=== PATIENT | male | born 1930 | race Caucasian/White ===

== ENCOUNTER 2021-04-06 13:20 | Inpatient (IN) | payer MEDICARE ==
[2021-04-06 13:45] LABS: #Basophils 0.1 10x3/uL (0.0-0.2); #Eosinphils 0.2 10x3/uL (0.0-0.5); #Monocytes 0.8 10x3/uL (0.0-1.1); #Neutrophils 4.5 10x3/uL (1.5-8.4); %Basophils 0.7 % (0.0-2.0); %Eosinophils 1.8 % (0.0-6.0); %Lymphocytes 34.8 % (18.0-47.0); %Monocytes 9.3 % (0.0-10.0); Hemoglobin 16.7 g/dL (13.5-17.5); Mean Corpuscular HGB CONC 33.3 g/dL (32.0-36.0); Mean Corpuscular Hemoglobin 30.5 pg (27.0-33.0); Mean Corpuscular Volume 91.8 fl (81.2-95.1); Mean Platelet Volume 9.9 fl (7.4-10.4); Platelet Count 245 10x3/uL (150-450); RBC Distribution Width 13.4 % (11.5-14.5); Red Blood Cell (RBC) Count 5.47 10x6/uL (4.32-5.72); White Blood Cell (WBC) Count 8.5 10x3/uL (3.5-10.5)
[2021-04-06 13:59] LABS: ALT (SGPT) 14 U/L (8-55); AST (SGOT) 14 U/L (5-34); Albumin 4.2 g/dL (3.4-4.8); Alkaline Phosphatase 82 U/L (40-110); Anion Gap 14 mmol/L (10-20); BUN (Urea Nitrogen) 23 mg/dL (8.4-25.7); Bilirubin, Total 0.9 mg/dL (0.2-1.2); CK (CPK) 46 U/L (30-200); Calc. Creatinine Clearance 0 mL/min (70-130); Calcium 9.1 mg/dL (7.8-10.44); Carbon Dioxide 25 mmol/L (23-31); Chloride 108 mmol/L (98-107); Globulin 1.9 g/dL (2.4-3.5); Glucose 109 mg/dL (83-110); Magnesium 2.1 mg/dL (1.6-2.6); Potassium 4.6 mmol/L (3.5-5.1); Protein, Total 6.1 g/dL (5.8-8.1); Sodium 142 mmol/L (136-145)
[2021-04-06] MEDS ORDERED: Aspirin Chewable 81 MG TAB ONE (14:31)
[2021-04-06 15:21] LABS: Acetaminophen Less than 6.0 mcg/mL (10.0-30.0); Alcohol Less than 10 mg/dL (Less than 10); Salicylate Less than 8.0 mg/dL (15.0-30.0)
[2021-04-06] MEDS ORDERED: Ondansetron ODT 4 MG TAB PO PRN (15:28)
[2021-04-06] MEDS ORDERED: Senokot S 8.6-50 MG TAB PO PRN (15:28)
[2021-04-06] MEDS ORDERED: Acetaminophen 325 MG TAB PO PRN (15:28)
[2021-04-06 15:39] LABS: Bilirubin Neg (Negative); Blood, Urine Negative (Negative); Clarity Clear (Clear); Glucose, Urine (Dipstick) Normal (Negative); Ketone, Urine Negative (Negative); Leukocyte Negative (Negative); Nitrite Negative (Negative); Protein, Urine (Dipstick) Negative (Neg-Trace); Specific Gravity, Urine 1.005 (1.002-1.036); Urobilinogen Normal mg/dL (Less than 2)
[2021-04-06] MEDS ORDERED: Acetaminophen 325 MG TAB PO SCH (18:00)
[2021-04-06 20:08] VITALS: BMI 30.7
[2021-04-06] MEDS: Atorvastatin Calcium 40 MG TAB PO SCH (20:51)
[2021-04-06] MEDS: Famotidine 20 MG TAB PO SCH (20:51)
[2021-04-06 22:04] LABS: Bilirubin Neg (Negative); Blood, Urine Negative (Negative); Clarity Clear (Clear); Glucose, Urine (Dipstick) Normal (Negative); Ketone, Urine Negative (Negative); Leukocyte Negative (Negative); Nitrite Negative (Negative); Protein, Urine (Dipstick) Negative (Neg-Trace); Specific Gravity, Urine 1.015 (1.002-1.036); Urobilinogen Normal mg/dL (Less than 2)
[2021-04-06 22:14] LABS: Amphetamine Not Detected (NotDetected); Barbiturates Screen Not Detected (NotDetected); Benzodiazepine Screen Not Detected (NotDetected); Cocaine Metabolite Screen Not Detected (NotDetected); Methadone Not Detected (NotDetected); Methamphetamine Not Detected (NotDetected); Opiate Screen Not Detected (NotDetected); Oxycodone Screen Not Detected (NotDetected); Phencyclidine (PCP) Not Detected (NotDetected); THC/Cannabinoid Screen Not Detected (NotDetected); Tricyclic Screen Not Detected (NotDetected)
[2021-04-06 22:18] LABS: Bacteria/HPF Rare-Few HPF (None Seen); RBC/HPF 0-3 HPF (0-3); Squamous Epithelial None Seen HPF (0-3); WBC/HPF None Seen HPF (0-3)
[2021-04-07] MEDS ORDERED: diphenhydrAMINE 25 MG CAP PO SCH (00:30)
[2021-04-07] MEDS ORDERED: Amlodipine 5 MG TAB PO SCH (05:15)
[2021-04-07 06:58] LABS: #Basophils 0.1 10x3/uL (0.0-0.2); #Eosinphils 0.1 10x3/uL (0.0-0.5); #Monocytes 0.7 10x3/uL (0.0-1.1); #Neutrophils 3.4 10x3/uL (1.5-8.4); %Basophils 0.9 % (0.0-2.0); %Lymphocytes 33.4 % (18.0-47.0); %Monocytes 10.4 % (0.0-10.0); Hemoglobin 17.3 g/dL (13.5-17.5); Mean Corpuscular HGB CONC 32.8 g/dL (32.0-36.0); Mean Corpuscular Hemoglobin 29.8 pg (27.0-33.0); Mean Corpuscular Volume 90.9 fl (81.2-95.1); Platelet Count 187 10x3/uL (150-450); RBC Distribution Width 13.5 % (11.5-14.5); White Blood Cell (WBC) Count 6.4 10x3/uL (3.5-10.5)
[2021-04-07 07:42] LABS: Anion Gap 13 mmol/L (10-20); BUN (Urea Nitrogen) 21 mg/dL (8.4-25.7); Calc. Creatinine Clearance 74 mL/min (70-130); Calcium 9.5 mg/dL (7.8-10.44); Carbon Dioxide 25 mmol/L (23-31); Cardiac Risk 3.8 (Less than 4.5); Chloride 109 mmol/L (98-107); Cholesterol 125 mg/dl (< 200 Desired); Glucose 121 mg/dL (83-110); HDL Cholesterol 33 mg/dL (>60 Neg Risk); LDL Cholesterol, Calculated 67 mg/dL; Potassium 4.2 mmol/L (3.5-5.1); Sodium 143 mmol/L (136-145); Triglycerides 127 mg/dL (Less than 150)
[2021-04-07 08:06] LABS: Thyroid Stimulating Hormone 2.6545 uIU/mL (0.35-4.94)
[2021-04-07] MEDS: Carvedilol 6.25 MG TAB PO SCH ×2 (08:38→22:37)
[2021-04-07] MEDS: Aspirin Chewable 81 MG TAB PO SCH (08:38)
[2021-04-07] MEDS: Famotidine 20 MG TAB PO SCH ×2 (08:38→22:37)
[2021-04-07] MEDS: Lisinopril 10 MG TAB PO SCH ×2 (08:38→22:38)
[2021-04-07] MEDS: Clopidogrel Bisulfate 75 MG TAB PO SCH (08:38)
[2021-04-07] MEDS ORDERED: Aspirin 81 mg Enteric Coated Tablet PO SCH (09:00)
[2021-04-07 11:31] LABS: Hemoglobin A1c 6.1 % (4.0-6.0)
[2021-04-07] MEDS ORDERED: traZODone HCl 50 MG TAB PO SCH (16:45)
[2021-04-07] MEDS ORDERED: Acetaminophen 500 MG TAB PO SCH (17:15)
[2021-04-07 17:26] LABS: SARS-CoV-2 PCR by NAA Not Detected (NotDetected)
[2021-04-07] MEDS: Atorvastatin Calcium 40 MG TAB PO SCH (22:39)
[2021-04-08 07:22] LABS: #Basophils 0.1 10x3/uL (0.0-0.2); #Eosinphils 0.2 10x3/uL (0.0-0.5); #Monocytes 0.6 10x3/uL (0.0-1.1); #Neutrophils 4.9 10x3/uL (1.5-8.4); %Basophils 0.8 % (0.0-2.0); %Eosinophils 2.8 % (0.0-6.0); %Lymphocytes 27.7 % (18.0-47.0); %Monocytes 7.4 % (0.0-10.0); %Neutrophils 60.9 % (40.0-75.0); Hemoglobin 17.3 g/dL (13.5-17.5); Mean Corpuscular HGB CONC 33.2 g/dL (32.0-36.0); Mean Corpuscular Hemoglobin 30.1 pg (27.0-33.0); Mean Corpuscular Volume 90.6 fl (81.2-95.1); Mean Platelet Volume 9.9 fl (7.4-10.4); Platelet Count 197 10x3/uL (150-450); RBC Distribution Width 13.4 % (11.5-14.5); Red Blood Cell (RBC) Count 5.75 10x6/uL (4.32-5.72)
[2021-04-08 07:39] LABS: Anion Gap 14 mmol/L (10-20); BUN (Urea Nitrogen) 20 mg/dL (8.4-25.7); Calc. Creatinine Clearance 69 mL/min (70-130); Calcium 9.3 mg/dL (7.8-10.44); Carbon Dioxide 26 mmol/L (23-31); Chloride 107 mmol/L (98-107); Glucose 131 mg/dL (83-110); Potassium 4.1 mmol/L (3.5-5.1); Sodium 143 mmol/L (136-145)
[2021-04-08] MEDS: Carvedilol 6.25 MG TAB PO SCH (08:26)
[2021-04-08] MEDS: Famotidine 20 MG TAB PO SCH (08:26)
[2021-04-08] MEDS: Clopidogrel Bisulfate 75 MG TAB PO SCH (08:26)
[2021-04-08] MEDS: Lisinopril 10 MG TAB PO SCH (08:26)
[2021-04-08] MEDS: Aspirin Chewable 81 MG TAB PO SCH (08:27)
[2021-04-08] MEDS ORDERED: Folic Acid 1 MG TAB PO SCH (09:00)
[2021-04-08] MEDS ORDERED: Cyanocobalamin (Vitamin B-12) 1,000 MCG TAB PO SCH (09:00)
[2021-04-08 12:38] VITALS: BP 125/74; TEMP 98.2
== END 2021-04-08 14:39 | disposition home health service (06) | DRG 66 ==
LOC: CSHERS 13:20 → OBSVTOIN 17:43 → CSHTELE 17:43
PROVIDERS: ADMIT Family Medicine; ATTEND Nurse Practitioner Family
DX: I63.9 Cerebral infarction, unspecified (principal); I25.10 Atherosclerotic heart disease of native coronary artery without angina pectoris; I10 Essential (primary) hypertension; E78.5 Hyperlipidemia, unspecified; F03.90 Unspecified dementia, unspecified severity, without behavioral disturbance, psychotic disturbance, mood disturbance, and anxiety; M47.816 Spondylosis without myelopathy or radiculopathy, lumbar region; M16.12 Unilateral primary osteoarthritis, left hip; I65.23 Occlusion and stenosis of bilateral carotid arteries; G89.29 Other chronic pain; R73.03 Prediabetes; E56.9 Vitamin deficiency, unspecified; Z20.822 Contact with and (suspected) exposure to COVID-19; R47.81 Slurred speech; R27.0 Ataxia, unspecified; Z88.0 Allergy status to penicillin; Z88.1 Allergy status to other antibiotic agents; Z88.8 Allergy status to other drugs, medicaments and biological substances; I25.2 Old myocardial infarction; Z79.82 Long term (current) use of aspirin; Z79.899 Other long term (current) drug therapy; Z95.5 Presence of coronary angioplasty implant and graft
CPT/HCPCS: 36415; 36416; 70450; 70496; 70498; 70551; 71045; 72100; 80048; 80053; 80061; 80306; 80307; 81003; 82550; 82607; 82746; 83036; 83605; 83735; 84443; 84484; 85025; 93005; 93306; U0003; U0005